=== PATIENT | female | born 1975 | race Caucasian/White ===

== ENCOUNTER 2016-05-03 14:06 | Emergency (ER) | payer OTHER ==
[2016-05-03 14:58] VITALS: BP 120/97
[2016-05-03] MEDS ORDERED: KETOROLAC TROMETHAMINE 60 MG/2 ML VIAL IM ONE ×2 (15:23→15:27)
[2016-05-03 15:38] LABS: Hematocrit 42.1 % (37.0-47.0); Hemoglobin 13.1 gm/dL (12.5-16.0); Mean Cell Volume 78.4 fl (78-100); Mean Corpuscular Hemoglobin 24.4 pg (27-31); Mean Corpuscular Hgb Conc 31.1 g/dl (32-36); Mean Platelet Volume 8.3 fl (6.0-9.5); Neutrophil # 12.6 K/mm3 (1.3-6.0); Neutrophil % 75.5 % (42-75.0); Platelet Count 380 K/mm3 (150-450); Red Blood Count 5.37 M/mm3 (4.2-5.4); Red Cell Distribution Width 15.5 % (11.5-14.0); White Blood Count 16.7 K/mm3 (4.0-10.5)
[2016-05-03 15:49] LABS: Urine Appearance Clear; Urine Bilirubin Negative (NEGATIVE); Urine Blood 10 /ul (NEGATIVE); Urine Color Yellow; Urine Ketone Negative (NEGATIVE); Urine Nitrite Negative (NEGATIVE); Urine Protein Negative (NEGATIVE); Urine Specific Gravity 1.005 SP.GR. (1.005-1.010); Urine Urobilinogen Normal (NORMAL); Urine pH 6.5 pH (5.0-7.0)
[2016-05-03 15:50] LABS: Urine Bacteria None Seen; Urine RBC 0-5 /hpf (0-5); Urine WBC 0-5 /hpf (0-5)
[2016-05-03 15:53] LABS: Albumin * 3.6 gm/dl (3.4-5.0); Anion Gap 13.3 mmol/L (6.8-13.8); BUN/Creatinine Ratio 14.7 (9.0-21.6); Bilirubin, Total 0.4 mg/dL (0.0-1.1); Ca. Corrected For Albumin 9.5 mg/dL (8.4-10.2); Calcium * 9.5 mg/dL (7.9-10.9); Carbon Dioxide 27.7 mmol/L (24-32.6); Total Protein 8.6 gm/dL (6.2-8.2)
--- NOTE | 2016-05-03 16:12 | ERNOTE ---
Back Pain ER HPI Date of Service: 05/03/16 Time Seen by Provider: 05/03/16 15:22 Source: patient Exam Limitations: no limitations Immunizations: IMMUNIZATION HX Immunizations Up to Date Yes History of Influenza Vaccine No Hx Pneumococcal Vaccination No Allergies/Adverse Reactions: Allergies bupropion HCl [From Wellbutrin] Allergy (Unverified 11/23/12 14:14) codeine Allergy (Unverified 11/23/12 14:14) lisdexamfetamine dimesylate [From Vyvanse] Allergy (Unverified 11/23/12 14:14) Home Medications: HOME MEDICATIONS Cetrizine 11/23/12 [Last Taken Unknown] Oxcarbazepine 11/23/12 [Last Taken Unknown] Pantoprazole Sodium 11/23/12 [Last Taken Unknown] Ranitidine HCl 11/23/12 [Last Taken Unknown] Venlafaxine HCl 11/23/12 [Last Taken Unknown] Ventolin 11/23/12 [Last Taken Unknown] Doxycycline Monohydrate 100 mg PO BID #20 tablet 05/03/16 [Last Taken Unknown] Naproxen [Naprosyn] 500 mg PO BID PRN #60 tab 05/03/16 [Last Taken Unknown] Narrative: Pt. comes in with c/o L sided back pain that started yesterday and has worsened throughout the day. Pt. denies any fevers, SOB, abd pain, NVD, CP, dysuria, alleviating factors, or aggravating factors. Pt. does state that she has had a cough for over a month. Pt. went to [facility] for these symptoms and was referred here due to having blood in her urine. Pt. denies any injury. Review of Systems - Review of Systems Constitutional: Present: no symptoms reported. Absent: recent illness, fever, chills, weakness, fatigue, malaise EYE: Present: no symptoms reported ENT: Present: no symptoms reported Respiratory: Present: no symptoms reported. Absent: shortness of breath, cough , wheezing Cardiology: Present: no symptoms reported. Absent: chest pain, palpitations, edema Gastrointestinal/Abdominal: Present: no symptoms reported. Absent: nausea, vomiting, diarrhea Genitourinary: Present: pain - L flank. Absent: frequency, decreased urinary output Musculoskeletal: Present: back pain - flank Skin: Present: no symptoms reported. Absent: rash, change in color Neurological: Present: no symptoms reported. Absent: headache, dizziness/light- headedness, numbness, tingling Endocrine: Present: no symptoms reported Hematologic/Lymphatic: Present: no symptoms reported All Other Systems: All systems neg except as marked - Patient's Past Medical History Patient History - Medical: Anxiety, Depression, GERD Patient History - Cancer: No Hx of Cancer Patient History - Surgical Procedures: EGD, T & A LMP (females 10-50): last week - Social History Living Situations: home Smoking Status: Current every day smoker Have you smoked in the past 12 months: Yes Alcohol Use: rarely Drug Use: none Physical Exam - Physical Exam General Appearance: Present: wd/wn, alert, no apparent distress Eye Exam: Normal inspection: bilateral, PERRL: bilateral, EOMI: bilateral Ears, Nose, Throat: Present: normal ENT inspection, hearing grossly normal, normal pharynx Neck: Present: normal inspection, nontender. Absent: lymphadenopathy (R), lymphadenopathy (L) Respiratory: Present: no respiratory distress, no accessory muscle use, chest nontender, lungs clear, decreased breath sounds - B bases Cardiovascular/Chest: Present: regular rate, rhythm, no murmur, normal peripheral pulses Gastrointestinal/Abdominal: Present: normal bowel sounds, nontender, nondistended, soft, no organomegaly Back Exam: Present: normal range of motion, CVA tenderness (L) Extremity Exam: Present: normal inspection, non-tender, no edema, normal range of motion Neurological Exam: Present: alert, oriented, normal mood/affect, no motor/ sensory deficits, grape pruner II-XII nml as tested, normal cerebellar test Skin Exam: Present: normal color, warm/dry. Absent: pallor, skin rash ED Progress - Date and Time Seen: Date and Time: 05/03/16 16:36 After reviewing labs and imaging feel that pt. symptomsa re most likely from LLL pneumonia nad not the intrarenal stone. - Results and Orders Patient's Lab Results:: I have reviewed the patient's lab results. - Vital Signs Patient's Vital Signs:: I have reviewed the patient's vital signs. Vital Signs: Vital Signs 05/03/16 14:53 Temperature 35.3 C L Pulse Rate 82 Respiratory 16 Rate Blood Pressure 120/97 O2 Sat by Pulse 93 Oximetry - X-Ray X-Ray #1 X-Ray: chest Interpretation: Interp. by me X-ray Comments: LLL consolidation boarderline cardiomegaly, chronic pulmonary changes. - CT/Ultrasound CT/Ultrasound Narrative: CT consistent with L intrarenal kidney stone and no ureteral or bladder stones noted. - Progress/Reassessment Chief Complaint: Back Pain Progress:: Improved Departure Clinical Impression: Pneumonia Qualifiers: Pneumonia type: due to unspecified organism Laterality: left Lung location: lower lobe of lung Qualified Code(s): J18.1 - Lobar pneumonia, unspecified organism - Departure Disposition: Home self-care Condition: Good Instructions: Community-Acquired Pneumonia, Adult, [id number] Additional Instructions: Please follow up with primary provider in 2-3 days Referrals: Pillo Serna DO [Primary Care Provider] - Prescriptions: Doxycycline Monohydrate 100 mg PO BID #20 tablet Naproxen [Naprosyn] 500 mg PO BID PRN #60 tab PRN Reason: Pain
== END 2016-05-03 17:10 | disposition home or self-care (01) ==
LOC: ER 14:06
DX: J18.1 Lobar pneumonia, unspecified organism (principal); F17.210 Nicotine dependence, cigarettes, uncomplicated